=== PATIENT | male | born 1960 | race Caucasian/White ===

== ENCOUNTER 2016-09-03 13:00 | Emergency (ER) | payer BC ==
[2016-09-03] MEDS: Sodium Chloride 0.9% 1,000 ML ONE ×2 (13:30→13:37)
[2016-09-03] MEDS ORDERED: Lidocaine 1% with EPINEPHrine 1:100,000 20 ML MDV INJECT ONE (13:33)
[2016-09-03] MEDS ORDERED: Diphtheria,Pertussis(Acell),Tetanus Vaccine 0.5 ML Syringe IM ONE (13:33)
[2016-09-03] MEDS ORDERED: Bacitracin/Neomycin/Polymyxin B Oint 0.9 GM U/D Packet TOP ONE (13:48)
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
[2016-09-03 14:43] VITALS: BP 118/79
== END 2016-09-03 14:20 | disposition home or self-care (01) ==
LOC: CC.ED 13:00
DX: S61.210A Laceration without foreign body of right index finger without damage to nail, initial encounter (principal); W26.8XXA Contact with other sharp object(s), not elsewhere classified, initial encounter; Z23 Encounter for immunization
CPT/HCPCS: 12002; 90471; 90715; 99282; J7030

== ENCOUNTER → 2017-05-19 | Day surgery (SDC) | payer BC ==
[~2017-05-19] MED LIST: Lactated Ringers 1,000 ML IV SCH; Propofol 200 MG/20 ML SDV IV ONE
[2017-05-19 10:23] VITALS: BP 113/72
--- NOTE | 2017-05-19 17:37 | OR ---
DATE OF OPERATION: 05/19/2017 PREOPERATIVE DIAGNOSIS: FAMILY HISTORY OF COLON CANCER. POSTOPERATIVE DIAGNOSIS: FAMILY HISTORY OF COLON CANCER. SURGEON: Ko Walters MD PROCEDURE: FULL-LENGTH COLONOSCOPY. ANESTHESIA: CLOD PULLER. COMPLICATIONS: None. SPECIMEN: None. FINDINGS: 1. Full-length colonoscopy. 2. Minimal sigmoid diverticulosis. RECOMMENDATIONS: Routine colonoscopy every 5 years. INDICATIONS: The patient has a family history of colon cancer. He is actually overdue for his routine procedure. DESCRIPTION OF PROCEDURE: The patient was prepped and draped, placed in the left lateral decubitus position. A lubricated Olympus colonoscope was inserted and advanced to the cecum. Direct visualization of the ileocecal valve and appendiceal orifice was accomplished. The bowel prep was fine. Upon withdrawal of scope throughout the entire length of the colon, I could find no signs of any polyps, mass, ulcerations, or bleeding sites. No vascular abnormalities or signs of colitis. No worrisome lesions or signs of malignancy. The patient did have a few scattered diverticula in the sigmoid area, but very minimal. Rectal vault was benign. Retroflexion of the scope in the rectum showed no anal lesions. Air was suctioned and scope removed without complication. FRANKO/MINO /[id number]
== END ==
LOC: CC.SDS 08:36
PROVIDERS: ATTEND Family Medicine
DX: Z12.11 Encounter for screening for malignant neoplasm of colon (principal); K57.30 Diverticulosis of large intestine without perforation or abscess without bleeding; N40.0 Benign prostatic hyperplasia without lower urinary tract symptoms; R09.89 Other specified symptoms and signs involving the circulatory and respiratory systems; I10 Essential (primary) hypertension; E03.9 Hypothyroidism, unspecified; R01.1 Cardiac murmur, unspecified; Z79.899 Other long term (current) drug therapy; Z98.84 Bariatric surgery status; Z87.891 Personal history of nicotine dependence; Z80.0 Family history of malignant neoplasm of digestive organs
CPT/HCPCS: 45378; J7120; J2704

== ENCOUNTER → 2022-03-11 | Day surgery (SDC) | payer BC ==
[~2022-03-11] MED LIST changes: +Ketamine 200 MG/20 ML MDV ONE; +Phenylephrine 1% 10 MG/ML SDV ONE; -Propofol 200 MG/20 ML SDV IV ONE; +Propofol 200 MG/20 ML SDV ONE; +fentaNYL 50 MCG/ML SDV ONE
[2022-03-11 13:21] VITALS: BP 119/68; PULSE 76
== END ==
LOC: CC.SDS 09:15
PROVIDERS: ATTEND Family Medicine
DX: Z12.11 Encounter for screening for malignant neoplasm of colon (principal); Z80.0 Family history of malignant neoplasm of digestive organs; K57.30 Diverticulosis of large intestine without perforation or abscess without bleeding; I10 Essential (primary) hypertension; E03.9 Hypothyroidism, unspecified; Z87.891 Personal history of nicotine dependence; Z79.890 Hormone replacement therapy; Z79.899 Other long term (current) drug therapy; Z86.010 Personal history of colon polyps
CPT/HCPCS: J2370; J2704; J3010; J7120

== ENCOUNTER 2025-01-18 17:37 | Emergency (ER) | payer OTHER, BC ==
[2025-01-18] MEDS ORDERED: Sodium Chloride 0.9% 10 ML Syringe FLUSH PRN (18:06)
[2025-01-18] MEDS ORDERED: Succinylcholine 200 MG/10 ML MDV ONE (18:13)
[2025-01-18 18:14] LABS: BASOPHILS ABSOLUTE AUTO 0.05 10^3/uL (0.00-0.50); BASOPHILS PERCENT AUTO 0.4 % (0-1); EOSINOPHILS ABSOLUTE AUTO 0.10 10^3/uL (0.00-1.50); EOSINOPHILS PERCENT AUTO 0.9 % (0-6); IMMATURE GRAN ABSOLUTE AUTO 0.03 10^3/uL (0.00-0.49); IMMATURE GRAN PERCENT AUTO 0.3 % (0.0-4.9); LYMPHOCYTES ABSOLUTE AUTO 1.40 10^3/uL (0.60-5.00); LYMPHOCYTES PERCENT AUTO 11.9 % (24-44); MONOCYTES ABSOLUTE AUTO 0.55 10^3/uL (0.00-1.50); MONOCYTES PERCENT AUTO 4.7 % (0-10); NEUTROPHILS ABSOLUTE AUTO 9.63 x10^3/uL (1.80-8.00); NEUTROPHILS PERCENT AUTO 81.8 % (41-71); PLATELET COUNT,PLT 246 10^3/uL (150-400); RED BLOOD CELL COUNT 3.68 x10^6/uL (4.50-6.00); WHITE BLOOD CELL COUNT,WBC 11.8 10^3/uL (4.0-11.0)
[2025-01-18] MEDS ORDERED: LORazepam 2 MG/ML SDV ONE (18:15)
[2025-01-18] MEDS ORDERED: fentaNYL 100 MCG/2 ML SDV ONE (18:15)
[2025-01-18 18:23] LABS: ALANINE AMINOTRANSFERASE,ALT 36 U/L (12-78); ASPARTATE AMNIOTRANSFERASE,AST 61 U/L (15-37); BILIRUBIN TOTAL 0.3 mg/dL (0.0-1.0); BLOOD UREA NITROGEN,BUN 14 mg/dL (7-18); CARBON DIOXIDE,CO2 23 mmol/L (21-32); CHLORIDE,CL 107 mEq/L (98-106); CREATININE 1.1 mg/dL (0.7-1.3); ESTIMATED GFR 75 mL/min (>=60); GLUCOSE RANDOM 155 mg/dL (75-99); POTASSIUM,K 3.6 mEq/L (3.5-5.0); PROTEIN TOTAL,TP 5.6 g/dL (6.4-8.2); SODIUM,NA 143 mEq/L (136-145)
[2025-01-18 18:28] LABS: INR 1.14 (0.92-1.18); PTT,PARTIAL THROMBOPLSTIN TIME 23.9 SEC (20.0-30.0)
[2025-01-18] MEDS: fentaNYL 100 MCG/2 ML SDV IV ONE (18:45)
[2025-01-18 18:48] VITALS: BP 109/78; PULSE 112
[2025-01-18] MEDS: LORazepam 2 MG/ML SDV IVPUSH ONE (19:10)
== END 2025-01-18 18:50 ==
LOC: CC.ED 17:37
DX: S22.42XA Multiple fractures of ribs, left side, initial encounter for closed fracture (principal); S32.9XXA Fracture of unspecified parts of lumbosacral spine and pelvis, initial encounter for closed fracture; S27.0XXA Traumatic pneumothorax, initial encounter; I10 Essential (primary) hypertension; E03.9 Hypothyroidism, unspecified; Z79.890 Hormone replacement therapy; Z79.899 Other long term (current) drug therapy; V20.59XA Other motorcycle passenger injured in collision with pedestrian or animal in traffic accident, initial encounter
CPT/HCPCS: 31500; 32551; 36415; 71045; 72020; 72170; 80053; 85025; 85610; 85730; 86850; 86900; 86901; 86920; 86922; 96365; 96374; 96375; 99291; G0390; J2060; J3010; J7030; J0330